=== PATIENT | male | born 1965 | race Caucasian/White ===

== ENCOUNTER → 2022-05-17 | Outpatient (CLI) | payer BC ==
[2022-05-17 11:08] LABS: Chol/HDL Ratio 3.74 Ratio; LDL Cholesterol,Calculated 123.6 mg/dL (0.0-131.0)
[2022-05-17 11:19] LABS: ALT 33 U/L (10-49); AST 17 U/L (14-35)
== END | disposition home or self-care (01) ==
LOC: LABWHC1 08:20
PROVIDERS: ATTEND Internal Medicine Interventional Cardiology
DX: E78.5 Hyperlipidemia, unspecified (principal)
CPT/HCPCS: 36415; 80061; 84450; 84460